=== PATIENT | female | born 1945 | race Caucasian/White ===

== ENCOUNTER → 2022-01-14 13:09 | Outpatient (CLI) | payer MEDICARE, OTHER, SELFPAY ==
[2022-01-14 14:06] LABS: COVID19 -Nasal RAPID Negative (Negative)
== END ==
PROVIDERS: Visit Provider Surgery
DX: Z20.822 Contact with and (suspected) exposure to COVID-19 (principal); Z01.812 Encounter for preprocedural laboratory examination
CPT/HCPCS: 87635; C9803

== ENCOUNTER 2022-01-15 12:46 | Day surgery (SDC) | payer MEDICARE, OTHER, SELFPAY ==
[2022-01-15] VITALS (7 sets, daily range): BP systolic 101–131; BP diastolic 62–71; PULSE 68–76; RESP 10–16; TEMP 36.3–37.2; O2SAT 95–99; BMI 29.0
--- NOTE | 2022-01-15 | PATH_ITS ---
[facility] Accession Number: [id number] . 01 Material submitted: . PART A: gastrointestinal site - GASTRIC PART B: colon - COLON POLYP AT 60CM . 01 Clinical history: . A: FOR H. PYLORI . 01 Diagnosis: A. Stomach, Biopsies: Antral and body-type mucosa with mild chronic gastritis. Negative for Helicobacter by immunohistochemistry. Negative for intestinal metaplasia. Negative for dysplasia and malignancy. . B. Colon, Polyp at 60 cm, Biopsy: Tubular adenoma. MRV 01/20/2022 1614 Local . 01 Electronically signed: . Sindy Arndt MD, Pathologist NPI- [id number] . 01 Gross description: . Part A: GASTRIC: Received in formalin are 2 fragment(s) of vazquez, soft tissue measuring 0.3 x 0.2 x 0.1 cm to 0.3 x 0.1 x 0.1 cm submitted entirely in 1 cassette(s) Part B: COLON POLYP AT 60CM: Received in formalin are 2 fragment(s) of vazquez, soft tissue measuring 0.4 x 0.2 x 0.2 cm to 0.2 x 0.1 x 0.1 cm submitted entirely in 1 cassette(s) /CPE 01/16/2022 0516 Local . 01 Microscopic: . A. An immunohistochemical stain was performed to evaluate for Helicobacter organisms and is negative. The control stain showed appropriate reactivity. . * This test was developed and its performance characteristics determined by [facility]. It has not been cleared or approved by the U.[place]. Food and Drug Administration. The FDA has determined that such clearance or approval is not necessary. This test is used for clinical purposes. It should not be regarded as investigational or for research. . 01 Pathologist provided ICD-10: D12.6 . 01 CPT . 574033, 354678, D16029 Specimen Comment: A courtesy copy of this report has been sent to [phone] Performed at: 01 [facility] [address] [place] [address] [id number] MD Clem Vega MD Phone: [phone]
[2022-01-15] MEDS: LACTATED RINGERS 1,000 ML 42 ML IV (14:09)
--- NOTE | 2022-01-15 14:14 | PM.HP.1 ---
History of Present Illness History of Present Illness Date Patient Seen: 01/15/22 Chief complaint: SDC Narrative: History of peptic ulcer disease with bleeding and without recent follow-up. Need to rule out active unhealed peptic disease Family history of colon cancer in her father at age 70 with history of adenomatous colon polyps need for follow-up colonoscopy. Patient History Family & Social History Social History: household members family Tobacco & Substance use: Smoking Status Never smoker alcohol intake never Substance Use Type does not use Meds Home Medications and Allergies Home Medications Medication Instructions Recorded Confirmed Type atorvastatin 40 mg tablet 1 tab PO DAILY 01/15/22 01/15/22 History calcitonin (salmon) 200 1 spray intranasal DAILY 01/15/22 01/15/22 History unit/actuation nasal spray hydrocodone 5 mg-acetaminophen 325 1 tab PO Q6H PRN Pain (Scale Score 01/15/22 01/15/22 History mg tablet 1-3) losartan 25 mg tablet 1 tab PO DAILY 01/15/22 01/15/22 History metoprolol succinate 25 mg 1 tab PO DAILY 01/15/22 01/15/22 History tablet,extended release 24 hr naproxen 250 mg tablet 1 tab PO BID 01/15/22 01/15/22 History pantoprazole 40 mg tablet,delayed 1 tab PO BID 01/15/22 01/15/22 History release sertraline 100 mg tablet 1 tab PO DAILY 01/15/22 01/15/22 History Allergies Allergy/AdvReac Type Severity Reaction Status Date / Time No Known Drug Allergies Allergy Verified 01/15/22 13:59 Exam Vital Signs (past 8 hours): - 01/15/22 14:04 Temperature 97.3 F L Pulse Rate 74 Respiratory Rate 16 Blood Pressure 103/62 Pulse Oximetry 97 Oxygen Delivery Method Room Air Oxygen Delivery Method Room Air Narrative Exam Narrative: Oropharynx free of lesions oropharynx free of lesion Chest clear to auscultation percussion Cardiac exam reveals no S3 or murmur Assessment & Plan Assessment & Plan narrative: Family history of colon cancer with personal history of colon polyps need for follow-up colonoscopy. Personal history of bleeding peptic ulcer disease need to follow-up EGD to ensure complete healing Risks, benefits, alternatives have been explained. Further recommendations will follow the results of the study. Time Spent With Patient Critical Care time: I spent a total of [] minutes of critical care time on this patient's care today; this time is exclusive of procedural time.
--- NOTE | 2022-01-15 14:17 | PM.OP.EC ---
Operative Date/Time/Diagnoses Date of procedure: 01/15/22 Pre-op diagnosis: See indication and findings Procedure & Clinicians Study performed: EGD and colonoscopy Indications: Family history of colon cancer and personal history of adenomatous colon polyps need for follow-up colonoscopy. EGD being performed due to history of bleeding peptic ulcer disease and need to check for complete healing Surgeon: Edward Quintanilla Procedure Notes Procedure in detail: After informed consent was obtained the patient was placed in left lateral decubitus position. The video upper scope was placed into the oropharynx and with the patient's help swelled into the esophagus. The esophagus stomach and duodenum were carefully examined. On withdrawal retroflexed view the GE junction was performed. The scope was removed. The patient tolerated procedure well. The patient was then turned of the colonoscope substituted. This easily passed cecum. On slow withdrawal mucosa was carefully evaluated. Preparation was a little less than good. Scope was removed. The patient tolerated procedure well. Blood loss none Complications none Sedation mac Findings EGD 1. Normal esophagus 2. Moderately severe gastric erythema throughout the stomach biopsies taken to rule out Helicobacter 3. Normal duodenal bulb and sweep with complete healing of duodenal ulcers Colonoscopy 1. He mm polyp at 60 cm cold snared and removed and retrieved. 2. Scattered sigmoid diverticulosis 3. Otherwise negative colonoscopy to cecum. Will be in touch patient findings. If this is adenomatous as expected I would even consider this to be our last colonoscopy given her multiple comorbidities or have follow-up in 7 years. Fortunately her duodenal ulcers are completely healed. Will await biopsies Helicobacter but if negative as expected might consider discontinuing proton pump inhibitors
== END 2022-01-15 16:05 | disposition home or self-care (01) ==
PROVIDERS: Referring Provider Internal Medicine Gastroenterology; Visit Provider Internal Medicine Gastroenterology
PROC: 0DJD8ZZ Inspection of Lower Intestinal Tract, Via Natural or Artificial Opening Endoscopic (ICD-10-PCS; CPT 45378; principal; 2022-01-15 14:00)
PROC: 0DJ08ZZ Inspection of Upper Intestinal Tract, Via Natural or Artificial Opening Endoscopic (ICD-10-PCS; CPT 43235; 2022-01-15 14:00)
DX: D12.6 Benign neoplasm of colon, unspecified (principal); K29.50 Unspecified chronic gastritis without bleeding; Z12.11 Encounter for screening for malignant neoplasm of colon; K57.30 Diverticulosis of large intestine without perforation or abscess without bleeding; K21.9 Gastro-esophageal reflux disease without esophagitis; Z87.11 Personal history of peptic ulcer disease; Z86.010 Personal history of colon polyps; Z80.0 Family history of malignant neoplasm of digestive organs; I13.0 Hypertensive heart and chronic kidney disease with heart failure and stage 1 through stage 4 chronic kidney disease, or unspecified chronic kidney disease; I50.33 Acute on chronic diastolic (congestive) heart failure; E11.22 Type 2 diabetes mellitus with diabetic chronic kidney disease; N18.9 Chronic kidney disease, unspecified; I25.2 Old myocardial infarction; E78.5 Hyperlipidemia, unspecified; F32.A Depression, unspecified; E66.9 Obesity, unspecified; Z68.29 Body mass index [BMI] 29.0-29.9, adult; Z79.4 Long term (current) use of insulin
CPT/HCPCS: 45385; 43239; J2250; J2704; J3010

== ENCOUNTER → 2022-01-20 09:23 | Outpatient (CLI) | payer MEDICARE, OTHER, SELFPAY ==
[2022-01-20 10:05] LABS: COVID19 -Nasal RAPID Negative (Negative)
--- NOTE | 2022-01-21 19:41 | DI.NM.S_ITS ---
DATE OF SERVICE: 01/20/2022 PROCEDURE PERFORMED: Intravenous Lexiscan pharmacological perfusion study. 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 RADIOPHARMACEUTICAL: 25.1 millicurie technetium-99m Myoview IV was injected at stress and 11.9 millicurie technetium-99m Myoview IV was injected at rest. CARDIAC STRESS: The patient underwent IV Lexiscan perfusion study under the supervision of an attending staff, as per standard protocol. The patient remained hemodynamically stable. Baseline blood pressure 120/68 and heart rate 66. Baseline rhythm was sinus rhythm with right bundle branch block and left axis with differential diagnosis left anterior fascicular block versus old inferior wall MA. The patient had chest tightness during Lexiscan infusion. During stress, no convincing ischemic changes. No new significant arrhythmias. RAW DATA: There is increased subdiaphragmatic activity. There is a significant breast shadow seen, as well. GATED STUDY: Stress LV ejection fraction 78 percent without any obvious wall motion abnormalities. Resting end-diastolic volume 110 mL. TID ratio 1.12, which is within normal limits. Lung/heart ratio 0.29, which is within normal limits. MYOCARDIAL PERFUSION SCAN: Stress supine, resting supine and stress prone images were compared to each other. Stress supine images revealed moderate- size, mildly decreased perfusion of inferior wall, which got completely resolved during stress prone images, suggestive of diaphragmatic tissue attenuation artifact. Overall, no convincing ischemia or infarction pattern seen. CONCLUSION: I will call this study a normal myocardial perfusion study with evidence of diaphragmatic tissue attenuation artifact, which got resolved during stress prone images. Stress prone images revealed normal myocardial perfusion. Overall, the patient has preserved left ventricular function. No significant wall motion abnormalities. No transient ischemic dilatation. Lung/heart ratio within normal limits. Baseline rhythm sinus with right bundle branch block and left axis. As far as perfusion scan is concerned, this is a low-risk myocardial perfusion scan. Barb Sarmiento - LUKE/francisco/adams doc#: [id number]/job#: [id number] dd: 01/21/2022 17:01:00 dt: 01/21/2022 19:05:00 DICTATING MD/COPIES TO: Abimael Quinteros MD COPIES MNE: ALEN;
== END ==
PROVIDERS: PCP Family Medicine; Referring Provider Nurse Practitioner; Visit Provider Nurse Practitioner
DX: I21.4 Non-ST elevation (NSTEMI) myocardial infarction (principal); I45.10 Unspecified right bundle-branch block; E11.9 Type 2 diabetes mellitus without complications; E66.9 Obesity, unspecified; D64.9 Anemia, unspecified; K25.9 Gastric ulcer, unspecified as acute or chronic, without hemorrhage or perforation; Z20.822 Contact with and (suspected) exposure to COVID-19
CPT/HCPCS: 78452; 87635; 93017; A9502; J2785